=== PATIENT | female | born 1980 | race Caucasian/White ===

== ENCOUNTER → 2016-07-13 | Outpatient (CLI) | payer MEDICAID | LOC: LAB 15:28 | DX: R20.2 Paresthesia of skin (principal) ==

== ENCOUNTER → 2016-11-10 | Outpatient (CLI) | payer MEDICAID ==
[2016-11-10 18:23] LABS: HEMOGLOBIN 13.7 g/dL (12.2-16.2); LYMPH # 2.5 K/mm3 (0.7-4.5); LYMPH % 33.3 % (10-50.0)
[2016-11-10 19:16] LABS: BUN 11 mg/dL (7-18)
[2016-11-10 19:20] LABS: GFR (ESTIMATED) 82 ML/MIN (59-)
--- NOTE | 2016-11-11 08:06 | RADIOLOGY REPORT PS360 ---
MRI-BRAIN W/O HISTORY: Left-sided weakness, left-sided headache, dizziness, visual changes, slurred speech, and impaired cognition LEFT SIDED WEAKNESS, DIFFICULTY BALANCING, VERTIGO ORDERING PHYSICIAN: CHINO MAYNARD PATIENT AGE: 36 years COMPARISON: CT scan of 05/18/2016 TECHNIQUE: Standard multiplanar multiecho sequences are performed without contrast. FINDINGS: No midline shift, mass effect, intracranial hemorrhage, or hydrocephalus. No evidence of acute infarction. No restricted diffusion. The cerebellopontine angles, cerebellum, and brainstem are unremarkable. There is opacification of the right mastoid sinus. No paranasal sinus air-fluid level evident. Normal gaitan-white matter differentiation. There are few small T2 white matter hyperintensities in the frontal lobes bilaterally nonspecific mainly in the subcortical region. Unremarkable pituitary and corpus callosum. No evidence of cerebellar ectopia. There is some irregularity of the right hippocampal gyrus only well seen on one image and without abnormal signal intensity. This is of questioned clinical significance. No other significant anomalies are evident. IMPRESSION: 1. No acute intracranial pathology. 2. Minimal cortical irregularity of the right hippocampal gyrus of questionable clinical significance. Correlation with clinical parameters needed. 3. Scant T2 white matter hyperintensities in the frontal lobes. These are nonspecific. Migraine headache could result in this finding. Ischemic microvascular change or demyelinating process also considered in the differential diagnosis. 4. Opacified right mastoid sinus.
[2016-11-12 08:45] LABS: Thyroid Peroxidase (TPO) Ab 11 IU/mL (0-34); Vitamin D, 25-Hydroxy 9.3 ng/mL (30.0-100.0)
[2016-11-12 09:40] LABS: Folate (Folic Acid) 10.7 ng/mL (>3.0); Vitamin B12 251 pg/mL (211-946)
[2016-11-12 14:40] LABS: Thyroglobulin Antibody <1.0 IU/mL (0.0-0.9)
[2016-11-12 18:40] LABS: Antinuclear Antibodies, IFA Negative (.)
== END ==
LOC: RAD 11:00 → LAB 11:13 → RAD 11:13
PROVIDERS: Physician Assistant
DX: R42 Dizziness and giddiness (principal); R53.1 Weakness; R29.818 Other symptoms and signs involving the nervous system; E55.9 Vitamin D deficiency, unspecified; E01.0 Iodine-deficiency related diffuse (endemic) goiter; M32.9 Systemic lupus erythematosus, unspecified; T75.3XXA Motion sickness, initial encounter

== ENCOUNTER → 2017-06-01 | Outpatient (CLI) | payer MEDICAID ==
[2017-06-01 15:16] LABS: HEMOGLOBIN 14.7 g/dL (12.2-16.2); LYMPH # 2.9 K/mm3 (0.7-4.5); LYMPH % 40.2 % (10-50.0)
[2017-06-08 03:38] LABS: RMSF, IgG, EIA Negative (Negative)
== END ==
LOC: LAB 14:33 → RT 14:33
PROVIDERS: Physician Assistant
DX: M79.1 Myalgia (principal); R00.0 Tachycardia, unspecified

== ENCOUNTER → 2017-06-23 | Outpatient (CLI) | payer MEDICAID ==
--- NOTE | 2017-06-23 17:32 | RADIOLOGY REPORT PS360 ---
US THYROID HISTORY: HASHIMOTOS THYROIDITIS ORDERING PHYSICIAN: CHINO MAYNARD PATIENT AGE: 36 years COMPARISON: 11/20/2016 FINDINGS: Right lobe: Right lobe of the thyroid gland is 4.5 x 2.1 x 2.1 cm. There is heterogeneous echogenicity with multiple small cysts. Once again there was a vague area measured by the technologist at 1.6 x 1.3 cm probably related to an area of heterogeneous echogenicity with cyst as opposed to a true nodule. Continued follow-up recommended Left lobe: Left lobe measures 4.5 x 1.4 x 2.1 cm. There is heterogeneous echogenicity with small cyst IMPRESSION: Continued swish cheese appearance of the thyroid gland consistent with thyroiditis with vague nodular region in the lower pole on the right probably unchanged. Continued 6 month follow-up recommended
== END ==
LOC: RAD 14:30
DX: E06.3 Autoimmune thyroiditis (principal)